=== PATIENT | male | born 1980 | race African-American/Black ===

== ENCOUNTER 2020-11-30 19:05 | Emergency (ER) | payer SELFPAY ==
[~2020-11-30] VITALS: Ht 175.3 cm; Wt 108.0 kg
[2020-11-30] MEDS ORDERED: CEFAZOLIN 1000MG PREMIX 50 ML IV ONE (19:30)
[2020-11-30] MEDS ORDERED: LIDOCAINE HCL/EPINEPHRINE 1%-EPI 1:100,000 20 ML VIAL INFIL ONE (19:30)
[2020-11-30] MEDS ORDERED: TETANUS, DIPHTHERIA, PERTUSSIS VAC/PF 0.5ML (>7YR OLD) IM ONE (19:30)
[2020-11-30 19:33] LABS: BASOPHILS % 0.8 % (0.0-2.0); EOSINOPHILS % 1.2 % (0.0-5.0); HEMATOCRIT. 45.9 % (42.0-52.0); HEMOGLOBIN. 15.9 g/dL (14.0-18.0); MEAN CORPUSCULAR VOLUME 92.7 fL (80.0-94.0); MEAN PLATELET VOLUME 7.6 fl (7.4-10.4); MONOCYTES % 10.1 % (2.0-8.0); NEUTROPHILS % 43.9 % (40.0-76.0); PLATELET 265 x1000/uL (130-400); RED BLOOD CELL COUNT 4.96 mill/uL (4.7-6.1); RED CELL DISTRIBUTION WIDTH 13.4 % (11.6-14.6)
[2020-11-30 19:39] LABS: CHLORIDE 108 mEq/L (98-107)
[2020-11-30] MEDS ORDERED: CEPH500C2 MT (20:49)
[2020-11-30] MEDS ORDERED: HYDR-4346 MT (20:49)
[2020-11-30 21:13] VITALS: BP 135/80
== END 2020-11-30 21:15 | disposition home or self-care (01) ==
LOC: ER 19:05
DX: S91.032A Puncture wound without foreign body, left ankle, initial encounter (principal); X95.9XXA Assault by unspecified firearm discharge, initial encounter; Y93.9 Activity, unspecified; Y92.9 Unspecified place or not applicable
CPT/HCPCS: 36415; 73590; 73610; 80053; 85025; 90471; 90715; 93005; 96365; 99285; J0690; J3490